=== PATIENT | female | born 1995 ===

== ENCOUNTER 2016-06-16 20:12 | Emergency (ER) | payer OTHER ==
[2016-06-16 20:12] VITALS: BMI 28.3
[2016-06-16 20:26] VITALS: BP 119/73; PULSE 74; RESP 18; TEMP 98.1; O2SAT 100
[2016-06-16] MEDS ORDERED: Iohexol 240 (50 ml) ONE (22:41)
[2016-06-16] MEDS ORDERED: Sodium Chloride 0.9% 1,000 ML IV STA (22:41)
--- NOTE | 2016-06-16 22:50 | ED PDOC ---
HPI: Abdomen Time Seen by Provider: 06/16/16 22:00 Chief Complaint (Nursing): Abdominal Pain Chief Complaint (Provider): Abdominal Pain History Per: Patient History/Exam Limitations: no limitations Onset/Duration Of Symptoms: Days (x5) Associated Symptoms: denies: Fever, Chills, Nausea, Vomiting, Constipation, Urinary Symptoms Additional Complaint(s): 22:00 Michelle Jane is a 21 year old female that presents to the ED with a chief complaint of lower abdominal pain that she has been experiencing for the past five days, and that has been worsening since onset. Patient states that she took an antacid one day, and that it appeared to have help alleviate her symptoms for some time, but her pain has returned and is continuously intensifying. Her pain worsens upon eating, so shes has had decreased PO intake. She denies any fever, chills, nausea, vomiting, vaginal bleeding, vaginal discharge, dysuria, hematuria, or frequency, but remarks that her urine stream "feels weak." She also states that her stool has appeared different, in that it is looser than usual and yellow in color. She has no surgical history, denies tobacco use and sexual activity. PMD: None Of Note: Patient's mother has Lupus and sister has Hasimoto's disease. Abnormal Vaginal Bleeding: No Last Menstral Period: two weeks ago Past Medical History Reviewed: Historical Data, Nursing Documentation, Vital Signs Vital Signs: Last Vital Signs Temp 98.1 F 06/16/16 20:25 Pulse 74 06/16/16 20:25 Resp 18 06/16/16 20:25 BP 119/73 06/16/16 20:25 Pulse Ox 100 06/16/16 20:25 - Medical History PMH: No Chronic Diseases - Surgical History Surgical History: No Surg Hx - Family History Family History: States: Other (Mother has Lupus, sister has Hasimoto's) - Social History Current smoker - smoking cessation education provided: No - Home Medications Home Medications: Ambulatory Orders Medication Instructions Recorded Naproxen [Naprosyn Tab] 500 mg PO BID PRN #20 tab 12/23/13 Nitrofurantoin Macrocrystals 100 mg PO BID #14 cap 12/23/13 [Macrobid] - Allergies Allergies/Adverse Reactions: Allergies Allergy/AdvReac Type Severity Reaction Status Date / Time No Known Allergies Allergy Verified 06/16/16 20:27 Review of Systems Constitutional: Negative for: Fever, Chills Gastrointestinal: Positive for: Abdominal Pain (lower abdominal pain). Negative for: Nausea, Vomiting Genitourinary Female: Positive for: Other (Patient states that urine stream feels weak and that stool appears looser than usual and yellow in color). Negative for: Dysuria, Frequency, Hematuria, Vaginal Discharge, Vaginal Bleeding Physical Exam - Reviewed Nursing Documentation Reviewed: Yes Vital Signs Reviewed: Yes - Physical Exam Appears: Positive for: No Acute Distress (Patient is obese) Head Exam: Positive for: ATRAUMATIC, NORMOCEPHALIC Skin: Positive for: Normal Color, Warm ENT: Positive for: Pharynx Is (clear). Negative for: Normal ENT Inspection ( dry mucous membranes) Cardiovascular/Chest: Positive for: Regular Rate, Rhythm. Negative for: Murmur Respiratory: Positive for: Normal Breath Sounds. Negative for: Respiratory Distress Gastrointestinal/Abdominal: Positive for: Tenderness (suprapubic tenderness to palpation). Negative for: Normal Exam (Abdomen is protuberant), Mass, Guarding , Rebound, Other (negative Bonilla's and McBurney's Point tenderness) Neurologic/Psych: Positive for: Alert, Oriented - ECG O2 Sat by Pulse Oximetry: 100 (RA) Pulse Ox Interpretation: Normal Medical Decision Making Medical Decision Makin:35 Initial Impression: Abdominal Pain vs. Ovarian Cyst vs. Colitis vs. Diverticulitis vs. Enteritis Initial Plan: * CT Scan A/P with IV Contrast * CMP * CBC * Cortisol PM * Lipase * Urine * Urine dipstick * Reevaluation Scribe Attestation: Documented by Danielle Chambers, acting as a scribe for Lavinia Smith MD Provider Scribe Attestation: All medical record entries made by the Scribe were at my direction and personally dictated by me. I have reviewed the chart and agree that the record accurately reflects my personal performance of the history, physical exam, medical decision making, and the department course for this patient. I have also personally directed, reviewed, and agree with the discharge instructions and disposition.
[2016-06-16 23:11] LABS: BASO # 0.1 K/uL (0.0-0.2); BASO % 0.5 % (0.0-2.0); EOS # 0.2 K/uL (0.0-0.7); EOS % 1.4 % (0.0-4.0); HEMATOCRIT 43.5 % (34.0-47.0); LYMPH # 2.9 K/uL (1.0-4.3); LYMPH % 25.4 % (20.0-40.0); MEAN CELL VOLUME 85.5 fl (81.0-99.0); MEAN CORPUSCULAR HEMOGLOBIN 27.6 pg (27.0-31.0); MEAN CORPUSCULAR HGB CONC 32.2 g/dL (33.0-37.0); MEAN PLATELET VOLUME 11.3 fl (7.2-11.7); MONO # 0.7 K/uL (0.0-0.8); MONO % 5.7 % (0.0-10.0); NEUT # 7.7 K/uL (1.8-7.0); NRBC % 0.1 % (0.0-0.0); RED CELL DISTRIBUTION WIDTH 13.9 % (11.5-14.5); WHITE BLOOD COUNT 11.6 K/uL (4.8-10.8)
[2016-06-16 23:17] LABS: ALB/GLOB RATIO 1.2 (1.0-2.1); ALKALINE PHOSPHATASE 86 U/L (38-126); ALT/SGPT 67 U/L (9-52); AST/SGOT 36 U/L (14-36); BILIRUBIN,TOTAL 0.3 mg/dl (0.2-1.3); BLOOD UREA NITROGEN 20 mg/dl (7-17); CALCIUM 9.6 mg/dL (8.4-10.2); CARBON DIOXIDE 24 mmol/L (22-30); CHLORIDE 105 mmol/L (98-107); GFR AFRICAN-AMERICAN > 60; GLUCOSE,RANDOM 91 mg/dL (65-105); LIPASE 79 U/L (23-300); SODIUM 143 mmol/l (132-148)
[2016-06-17] MEDS ORDERED: Sodium Chloride 0.9% 50 ML IV ONE (00:45)
[2016-06-17] MEDS ORDERED: Iohexol 300 100 ML IJ ONE (00:45)
--- NOTE | 2016-06-17 01:18 | CT ---
EXAM: CT Abdomen and Pelvis With Intravenous Contrast. CLINICAL HISTORY: 21 years old, female; Pain; Abdominal pain; Localized; Lower; Additional info: Lower abd pain TECHNIQUE: Axial computed tomography images of the abdomen and pelvis with intravenous contrast. This CT exam was performed using one or more of the following dose reduction techniques: automated exposure control, adjustment of the mA and/or kV according to patient size, and/or use of iterative reconstruction technique. Coronal and sagittal reformatted images were created and reviewed. CONTRAST: 95 mL of [id number] administered intravenously. COMPARISON: No relevant prior studies available. FINDINGS: Fatty infiltration of the liver. The spleen, pancreas and adrenal glands demonstrate no acute abnormalities. The kidneys are symmetric with no evidence of hydronephrosis. The aorta is unremarkable. The small and large bowel as visualized demonstrate no evidence of obstruction or clear focus of inflammation. Oral contrast within small bowel at the time of imaging, limiting evaluation distally. No evidence of appendicitis. Some retained fecal material in the colon. Unremarkable evaluation of pelvic viscera. Slight hazy appearance to the mesentery, nonspecific. No ascites. No free air. IMPRESSION: No definitive acute CT finding to correspond to reported history. Please see details/findings as above.
--- NOTE | 2016-06-17 02:40 | ED PDOC ---
- Laboratory Results Result Diagrams: 06/16/16 23:06 06/16/16 23:06 - ECG O2 Sat by Pulse Oximetry: 100 (RA) Medical Decision Making Medical Decision Making: Pt s/o to provider by Dr Smith CT A/P shows no acute findings Patient is stable for dc home DX AGE RX Bentyl, FU PCP 2 days Disposition - Clinical Impression Clinical Impression: Gastroenteritis - POA Present On Arrival: None - Disposition Referrals: [facility] [Outside] [facility] [Outside] Disposition: Routine/Home Disposition Time: 00:39 Condition: STABLE Prescriptions: Dicyclomine [Bentyl] 20 mg PO Q12 PRN #20 tab PRN Reason: abdominal pain Instructions: Gastroenteritis (ED)
== END 2016-06-17 03:08 | disposition home or self-care (01) ==
LOC: H.ER 20:12
DX: K52.9 Noninfective gastroenteritis and colitis, unspecified (principal); R10.9 Unspecified abdominal pain

== ENCOUNTER 2017-01-11 14:25 | Emergency (ER) | payer OTHER ==
[2017-01-11 14:25] VITALS: BMI 28.3
[2017-01-11 14:40] VITALS: BP 119/56; PULSE 76; RESP 16; TEMP 96; O2SAT 99
[2017-01-11] MEDS ORDERED: Sodium Chloride 0.9% 1,000 ML IV STA (15:41)
--- NOTE | 2017-01-11 16:06 | ED PDOC ---
HPI: Abdomen <Lavinia Smith - Last Filed: 01/11/17 18:10> History Per: Patient <Theodore Hatfield - Last Filed: 01/11/17 18:34> Time Seen by Provider: 01/11/17 15:09 Chief Complaint (Nursing): Abdominal Pain Additional Complaint(s): 21 y/o obese F complaining of lower abdominal pain that began yesterday. Pain is constant today, radiates to upper quadrants, 7/10 intensity and NOT alleviating. Pt has been having intermittent episodes of abdominal pain since a few months ago that resolves spontaneously. Pt reports intermittent constipation and diarrhea for many years. Pt denies fever, headache, CP, SOB, acid reflux, N/V, dysuria, urinary frequency, dyspareunia, vaginal dyscharge or rash. Allergies: NKDA Medications: none. PMHx: denied. PSHx: denied FHx: mother has Lupus and GERD. SHx: Denies tobacco, alcohol, or recreational drugs. Pt currently sexually active with boyfriend. (Theodore Hatfield) Past Medical History <Lavinia Smith - Last Filed: 01/11/17 18:10> - Medical History PMH: No Chronic Diseases <Theodore Hatfield - Last Filed: 01/11/17 18:34> Vital Signs: Last Vital Signs Temp 96 F L 01/11/17 14:36 Pulse 76 01/11/17 14:36 Resp 16 01/11/17 14:36 BP 119/56 L 01/11/17 14:36 Pulse Ox 99 01/11/17 18:23 - Home Medications Home Medications: Ambulatory Orders Medication Instructions Recorded Naproxen [Naprosyn Tab] 500 mg PO BID PRN #20 tab 12/23/13 Nitrofurantoin Macrocrystals 100 mg PO BID #14 cap 12/23/13 [Macrobid] Dicyclomine [Bentyl] 20 mg PO Q12 PRN #20 tab 06/17/16 Naproxen [Naprosyn] 1 tab PO BID PRN #30 tab 01/11/17 - Allergies Allergies/Adverse Reactions: Allergies Allergy/AdvReac Type Severity Reaction Status Date / Time No Known Allergies Allergy Verified 06/16/16 20:27 Physical Exam - Physical Exam Appears: Positive for: Well, No Acute Distress Head Exam: Positive for: ATRAUMATIC Skin: Positive for: Normal Color Eye Exam: Positive for: Normal appearance, EOMI, PERRL ENT: Positive for: Normal ENT Inspection Neck: Positive for: Normal Cardiovascular/Chest: Positive for: Regular Rate, Rhythm Respiratory: Positive for: Normal Breath Sounds Gastrointestinal/Abdominal: Positive for: Bowel Sounds, Soft, Tenderness (( diffusively, more intense in suprapubic area)). Negative for: Mass, Guarding, Rebound <Theodore Hatfield - Last Filed: 01/11/17 18:34> - Laboratory Results Result Diagrams: 01/11/17 16:15 01/11/17 16:15 <Lavinia Smith - Last Filed: 01/11/17 18:10> - Laboratory Results Result Diagrams: 01/11/17 16:15 01/11/17 16:15 - ECG O2 Sat by Pulse Oximetry: 99 <Theodore Hatfield - Last Filed: 01/11/17 18:34> Medical Decision Making <Lavinia Smith - Last Filed: 01/11/17 18:10> <Theodore Hatfield - Last Filed: 01/11/17 18:34> Medical Decision Makin21 y/o obese F presenting with bilateral lower quadrants abdominal pain. Plan: --Urine BHCG qualitative --CBC --CMP --Urinalysis --Pelvic US-transvaginal --Toradol --IV NSS 0.9% (Theodore Hatfield) Disposition <Lavinia Smith - Last Filed: 01/11/17 18:10> - Patient ED Disposition Is Patient to be Admitted: No Discussed With : Lavinia Smith - Disposition Disposition: Routine/Home Disposition Time: 18:25 <Theodore Hatfield Last Filed: 01/11/17 18:34> - Clinical Impression Clinical Impression: Pelvic pain - Disposition Condition: GOOD Prescriptions: Naproxen [Naprosyn] 1 tab PO BID PRN #30 tab PRN Reason: Pain Instructions: Pelvic Pain in Women (ED) Forms: [employer] (Icelandic)
[2017-01-11 16:23] LABS: BASO # 0.1 K/uL (0.0-0.2); BASO % 0.8 % (0.0-2.0); EOS # 0.1 K/uL (0.0-0.7); EOS % 0.8 % (0.0-4.0); HEMATOCRIT 41.7 % (34.0-47.0); LYMPH # 2.2 K/uL (1.0-4.3); LYMPH % 26.7 % (20.0-40.0); MEAN CELL VOLUME 83.8 fl (81.0-99.0); MEAN CORPUSCULAR HEMOGLOBIN 27.1 pg (27.0-31.0); MEAN CORPUSCULAR HGB CONC 32.3 g/dL (33.0-37.0); MEAN PLATELET VOLUME 11.2 fl (7.2-11.7); MONO # 0.5 K/uL (0.0-0.8); MONO % 6.6 % (0.0-10.0); NEUT # 5.4 K/uL (1.8-7.0); NEUT % 65.1 % (50.0-75.0); NRBC % 0.1 % (0.0-0.0); RED CELL DISTRIBUTION WIDTH 14.7 % (11.5-14.5); WHITE BLOOD COUNT 8.3 K/uL (4.8-10.8)
[2017-01-11 16:35] LABS: ALB/GLOB RATIO 1.2 (1.0-2.1); ALKALINE PHOSPHATASE 76 U/L (38-126); ALT/SGPT 57 U/L (9-52); AST/SGOT 30 U/L (14-36); BILIRUBIN,TOTAL 0.5 mg/dl (0.2-1.3); BLOOD UREA NITROGEN 12 mg/dl (7-17); CARBON DIOXIDE 27 mmol/L (22-30); CHLORIDE 104 mmol/L (98-107); GFR AFRICAN-AMERICAN > 60; GLUCOSE,RANDOM 87 mg/dL (65-105); POTASSIUM 4.5 MMOL/L (3.6-5.0); SODIUM 141 mmol/l (132-148); TOTAL PROTEIN 7.7 G/DL (6.3-8.2)
--- NOTE | 2017-01-11 19:09 | US ---
EXAM: US Pelvis, Transvaginal EXAM DATE/TIME: 01/11/2017 3:40 PM CLINICAL HISTORY: 21 years old, female; Pain; Pelvic pain; Additional info: Pelvic pain R/O cyst or torsion TECHNIQUE: Real-time transvaginal pelvic ultrasound (complete) with image documentation. Transvaginal imaging was used for better evaluation of the endometrium and adnexa. COMPARISON: There are no prior studies for comparison. FINDINGS: Uterus: Uterus measures approximately 7.2 x 3 x 4.3 cm. Endometrium measures approximately 8.2 mm in width. Right ovary: Right ovary measures approximately 3.3 x 2.8 x 2.6 cm. There are multiple small follicles. There is intraovarian blood flow. Left ovary: Left ovary measures approximately 3.2 x 2.2 x 2.8 cm. There are multiple small follicles. There is intraovarian blood flow. Free fluid: There is a small amount of free fluid in the cul-de-sac. Bladder: Bladder is not visualized. IMPRESSION: Normal uterus and ovaries, no torsion; small amount of fluid in the cul-de-sac, physiologic versus recent cyst rupture
== END 2017-01-11 18:48 | disposition home or self-care (01) ==
LOC: H.ER 14:25
DX: R10.2 Pelvic and perineal pain (principal)
CPT/HCPCS: 76830; 80053; 81025; 85025; 96374; 99282; J1885; J7040

== ENCOUNTER 2017-11-15 02:37 | Emergency (ER) | payer MEDICAID, OTHER ==
[2017-11-15 02:39] VITALS: BMI 28.3
[2017-11-15] MEDS ORDERED: Sodium Chloride 0.9% 1,000 ML IV STA (03:40)
--- NOTE | 2017-11-15 03:50 | ED PDOC ---
HPI: Hypertension/Hypotension Time Seen by Provider: 11/15/17 03:13 Chief Complaint (Nursing): Abdominal Pain Chief Complaint (Provider): palpitations History Per: Patient History/Exam Limitations: no limitations Onset/Duration Of Symptoms: Days, Waxing/Waning Quality Of Symptoms: Irregular Heart Rate Additional History Per: Patient Additional Complaint(s): 22 y/o female history of developmental delay presents with mother for evaluation of palpitations prior to onset. Patient states she was trying to fall asleep and would randomly feel her her "jolt" and it would wake her up. Patient states she then started to feel her heart racing. Denies fever, headache , dizziness, nausea/vomiting, shortness of breath, abdominal pain, leg pain/ swelling, recent travel. Past Medical History Reviewed: Historical Data, Nursing Documentation, Vital Signs Vital Signs: Last Vital Signs Temp 98.4 F 11/15/17 02:47 Pulse 67 11/15/17 02:47 Resp 17 11/15/17 02:47 BP 103/74 11/15/17 02:47 Pulse Ox 97 11/15/17 02:47 - Medical History PMH: No Chronic Diseases - Surgical History Surgical History: No Surg Hx - Family History Family History: States: Unknown Family Hx - Home Medications Home Medications: Ambulatory Orders Medication Instructions Recorded Naproxen [Naprosyn Tab] 500 mg PO BID PRN #20 tab 12/23/13 Nitrofurantoin Macrocrystals 100 mg PO BID #14 cap 12/23/13 [Macrobid] Dicyclomine [Bentyl] 20 mg PO Q12 PRN #20 tab 06/17/16 Naproxen [Naprosyn] 1 tab PO BID PRN #30 tab 01/11/17 - Allergies Allergies/Adverse Reactions: Allergies Allergy/AdvReac Type Severity Reaction Status Date / Time No Known Allergies Allergy Verified 06/16/16 20:27 Review of Systems ROS Statement: Except As Marked, All Systems Reviewed And Found Negative Cardiovascular: Positive for: Chest Pain, Palpitations Physical Exam - Reviewed Nursing Documentation Reviewed: Yes Vital Signs Reviewed: Yes - Physical Exam Appears: Positive for: Well, Non-toxic, No Acute Distress Head Exam: Positive for: ATRAUMATIC, NORMAL INSPECTION, NORMOCEPHALIC Skin: Positive for: Normal Color Eye Exam: Positive for: Normal appearance ENT: Positive for: Normal ENT Inspection Cardiovascular/Chest: Positive for: Regular Rate, Rhythm Respiratory: Positive for: Normal Breath Sounds Gastrointestinal/Abdominal: Positive for: Bowel Sounds, Soft, Tenderness (mild epigastric discomfort) Back: Positive for: Normal Inspection Extremity: Positive for: Normal ROM Neurologic/Psych: Positive for: Alert, Oriented (x3) - Laboratory Results Result Diagrams: 11/15/17 04:05 11/15/17 04:05 - ECG ECG: Positive for: Viewed By Me (reviewed by ED attending) ECG Rhythm: Positive for: Sinus Rhythm O2 Sat by Pulse Oximetry: 97 - Progress ED Course And Treament: labs, ekg, IV fluids Patient/mother educated on findings, discharged with instructions to follow up PMD 2-3 days Return precautions given Disposition - Clinical Impression Clinical Impression: Atypical chest pain, Palpitations - Patient ED Disposition Is Patient to be Admitted: No Counseled Patient/Family Regarding: Studies Performed, Diagnosis, Need For Followup - Disposition Referrals: [facility] [Outside] Disposition: Routine/Home Disposition Time: 05:25 Condition: IMPROVED Instructions: Chest Pain, Palpitations Forms: [employer] (Chinese)
[2017-11-15 04:14] LABS: BASO % 0.4 % (0.0-2.0); EOS # 0.1 K/uL (0.0-0.7); EOS % 1.6 % (0.0-4.0); HEMOGLOBIN 13.6 g/dL (12.0-16.0); LYMPH # 2.7 K/uL (1.0-4.3); MEAN CORPUSCULAR HEMOGLOBIN 27.9 pg (27.0-31.0); MEAN CORPUSCULAR HGB CONC 33.2 g/dL (33.0-37.0); MEAN PLATELET VOLUME 11.3 fl (7.2-11.7); MONO # 0.7 K/uL (0.0-0.8); MONO % 7.7 % (0.0-10.0); NEUT # 4.9 K/uL (1.8-7.0); NEUT % 58.3 % (50.0-75.0); NRBC % 0.2 % (0.0-0.0); RBC 4.89 Mil/uL (3.80-5.20); RED CELL DISTRIBUTION WIDTH 14.3 % (11.5-14.5); WHITE BLOOD COUNT 8.5 K/uL (4.8-10.8)
[2017-11-15 04:28] LABS: ALB/GLOB RATIO 1.3 (1.0-2.1); ALBUMIN 4.4 g/dL (3.5-5.0); ALT/SGPT 55 U/L (9-52); AST/SGOT 30 U/L (14-36); BLOOD UREA NITROGEN 13 mg/dl (7-17); CALCIUM 9.3 mg/dL (8.4-10.2); GFR NON-AFRICAN AMERICAN > 60; LIPASE 84 U/L (23-300)
[2017-11-15 05:53] VITALS: BP 114/78; PULSE 72; RESP 18; TEMP 98.2; O2SAT 99
== END 2017-11-15 05:40 | disposition home or self-care (01) ==
LOC: H.ER 02:37
DX: R00.2 Palpitations (principal); R07.89 Other chest pain; I10 Essential (primary) hypertension
CPT/HCPCS: 80053; 81025; 83690; 84443; 84484; 85025; 99284; J7030

== ENCOUNTER 2018-03-26 18:08 | Emergency (ER) | payer MEDICAID, OTHER ==
[2018-03-26 18:08] VITALS: BMI 28.3
[2018-03-26 18:38] VITALS: TEMP 99.5
[2018-03-26] MEDS ORDERED: Sodium Chloride 0.9% 1,000 ML IV STA (19:23)
--- NOTE | 2018-03-26 19:37 | ED PDOC ---
HPI:Nausea, Vomiting, Diarrhea Time Seen by Provider: 03/26/18 18:50 Chief Complaint (Nursing): Abdominal Pain Chief Complaint (Provider): GI Problem History Per: Patient History/Exam Limitations: no limitations Onset/Duration Of Symptoms: Days (x1) Current Symptoms Are (Timing): Still Present Context: Food Associated Symptoms: Nausea, Vomiting, Diarrhea Additional Complaint(s): 23 y/o female with a PMHx of Gastritis and Autism presents to the ED for evaluation of nausea, vomiting and diarrhea since 8 AM this morning. Patient reports of eating junk food last night and denies having any new food or drinking alcohol. Patient states she is able to keep down food and liquids, however starts to feel nauseous. Patient reports of taking Pepto Bismol with no relief. Otherwise, patient denies any associated symptoms including fever. PMD: Dr. Ramos Past Medical History Reviewed: Historical Data, Nursing Documentation, Vital Signs Vital Signs: Last Vital Signs Temp 99.5 F 03/26/18 18:34 Pulse 112 H 03/26/18 18:34 Resp 20 03/26/18 18:34 BP 118/75 03/26/18 18:46 Pulse Ox 100 03/26/18 18:34 - Medical History PMH: Gastritis Other PMH: Autism, obestiy - Surgical History Surgical History: No Surg Hx - Family History Family History: States: Unknown Family Hx - Social History Current smoker - smoking cessation education provided: No Alcohol: None Drugs: Denies - Home Medications Home Medications: Ambulatory Orders Medication Instructions Recorded Naproxen [Naprosyn Tab] 500 mg PO BID PRN #20 tab 12/23/13 Nitrofurantoin Macrocrystals 100 mg PO BID #14 cap 12/23/13 [Macrobid] Dicyclomine [Bentyl] 20 mg PO Q12 PRN #20 tab 06/17/16 RX: Naproxen [Naprosyn] 1 tab PO BID PRN #30 tab 01/11/17 Ondansetron [Zofran] 4 mg PO Q6H PRN #5 tab 03/27/18 - Allergies Allergies/Adverse Reactions: Allergies Allergy/AdvReac Type Severity Reaction Status Date / Time No Known Allergies Allergy Verified 06/16/16 20:27 Review of Systems ROS Statement: Except As Marked, All Systems Reviewed And Found Negative Constitutional: Negative for: Fever Gastrointestinal: Positive for: Nausea, Vomiting, Diarrhea Physical Exam - Reviewed Nursing Documentation Reviewed: Yes Vital Signs Reviewed: Yes - Physical Exam Appears: Positive for: No Acute Distress (but obese) Head Exam: Positive for: ATRAUMATIC, NORMOCEPHALIC Skin: Positive for: Normal Color, Warm, Dry Eye Exam: Positive for: Normal appearance, EOMI, PERRL ENT: Positive for: Normal ENT Inspection Neck: Positive for: Normal, Painless ROM, Supple Cardiovascular/Chest: Positive for: Regular Rate, Rhythm. Negative for: Murmur Respiratory: Positive for: Normal Breath Sounds. Negative for: Respiratory Distress Gastrointestinal/Abdominal: Positive for: Normal Exam, Soft. Negative for: Tenderness Back: Positive for: Normal Inspection. Negative for: L CVA Tenderness, R CVA Tenderness, Vertebral Tenderness Extremity: Positive for: Normal ROM. Negative for: Deformity Neurologic/Psych: Positive for: Alert, Oriented. Negative for: Motor/Sensory Deficits - Laboratory Results Result Diagrams: 03/26/18 19:37 03/26/18 19:37 - ECG O2 Sat by Pulse Oximetry: 100 (RA) Pulse Ox Interpretation: Normal Medical Decision Making Medical Decision Making: Time: 1922 Impression: abdominal pain, vomiting rule out gastroeneteritis Plan: -- CMP -- Lipase -- ED Urine Dipstick -- CBC with Differentials -- Sodium Chloride 0.9% IV 999 mls/hr -- Pepcid 20 mg IVP -- Zofran Inj 4 mg IV -- Urine C&S -- Urinalaysis Time: 2199 -- Labs reviewed and show no clinically significant abnormalities. Time: 46 --Patient has tolerated PO challenge. and states she feesl much better. discussed results with patient. she has no fever, no wbc, she looks well. instructed her on good hydration at home, zofran prn nausea and follow up with pcp. if symptoms worsen to return to the ED. Scribe Attestation: Documented by Yamil Hunter, acting as a scribe for Frantz Martínez MD. Provider Scribe Attestation: All medical record entries made by the Scribe were at my direction and personally dictated by me. I have reviewed the chart and agree that the record accurately reflects my personal performance of the history, physical exam, medical decision making, and the department course for this patient. I have also personally directed, reviewed, and agree with the discharge instructions and disposition. Disposition - Clinical Impression Clinical Impression: Enteritis - Patient ED Disposition Is Patient to be Admitted: No Counseled Patient/Family Regarding: Studies Performed, Diagnosis, Need For Followup - Disposition Disposition: Routine/Home Disposition Time: 00:45 Condition: IMPROVED Additional Instructions: FOLLOW UP WITH YOUR PRIMARY DOCTOR IN 1-2 DAYS STAY HYDRATED RETURN TO THE ED WITH ANY WORSENING OR CONCERNING SYMPTOMS Prescriptions: Ondansetron [Zofran] 4 mg PO Q6H PRN #5 tab PRN Reason: Nausea/Vomiting Instructions: Viral Gastroenteritis, Adult (DC) Forms: [employer] (Italian)
[2018-03-26 20:16] LABS: BASO % 0.4 % (0.0-2.0); EOS % 0.3 % (0.0-4.0); HEMOGLOBIN 13.8 g/dL (12.0-16.0); LYMPH # 0.6 K/uL (1.0-4.3); LYMPH % 6.3 % (20.0-40.0); MEAN CELL VOLUME 85.3 fl (81.0-99.0); MEAN CORPUSCULAR HEMOGLOBIN 27.8 pg (27.0-31.0); MEAN CORPUSCULAR HGB CONC 32.6 g/dL (33.0-37.0); MEAN PLATELET VOLUME 11.5 fl (7.2-11.7); MONO # 0.4 K/uL (0.0-0.8); MONO % 4.1 % (0.0-10.0); NEUT # 8.4 K/uL (1.8-7.0); NEUT % 88.9 % (50.0-75.0); PLATELET COUNT 176 K/uL (130-400); RBC 4.96 Mil/uL (3.80-5.20); RED CELL DISTRIBUTION WIDTH 14.7 % (11.5-14.5); WHITE BLOOD COUNT 9.4 K/uL (4.8-10.8)
[2018-03-26 20:29] LABS: SQUAMOUS EPITHIAL 2 /hpf (0-5); URINE BACTERIA RARE (<OCC); URINE BILIRUBIN NEGATIVE (NEGATIVE); URINE BLOOD NEGATIVE (NEGATIVE); URINE CLARITY SLIGHTY-CLOUDY (Clear); URINE COLOR YELLOW (YELLOW); URINE GLUCOSE (UA) NEG (NEGATIVE); URINE LEUKOCYTE ESTERASE NEG Leu/uL (Negative); URINE PROTEIN NEGATIVE (NEGATIVE)
[2018-03-26 20:35] LABS: ALB/GLOB RATIO 1.1 (1.0-2.1); ALBUMIN 4.2 g/dL (3.5-5.0); ALT/SGPT 40 U/L (9-52); AST/SGOT 29 U/L (14-36); BLOOD UREA NITROGEN 16 mg/dl (7-17); CALCIUM 9.1 mg/dL (8.4-10.2); GFR NON-AFRICAN AMERICAN > 60; LIPASE 44 U/L (23-300)
[2018-03-26 20:58] LABS: LYMPHOCYTE 8 % (20-50); MONOCYTE 4 % (0-10); NEUTROPHIL 87 % (42-75); PLATELET ESTIMATE NORMAL (NORMAL); REACTIVE LYMPHOCYTES 1 % (0-0); TOTAL CELLS COUNTED 100
[2018-03-26 20:59] LABS: ANISOCYTOSIS SLIGHT
[2018-03-26] MEDS ORDERED: Sodium Chloride 0.9% 50 ML IV ONE (22:41)
[2018-03-26] MEDS ORDERED: Iohexol 300 100 ML IJ ONE (22:41)
[2018-03-27 01:02] VITALS: BP 115/55; PULSE 77; RESP 16
[2018-03-27 02:32] VITALS: O2SAT 100
--- NOTE | 2018-03-27 13:52 | CT ---
Date of service: 03/26/2018 PROCEDURE: CT Abdomen and Pelvis with contrast HISTORY: diffuse abd pain COMPARISON: 06/17/2016. TECHNIQUE: CT scan of the abdomen and pelvis was performed after administration of intravenous contrast. Oral contrast was not administered. Coronal and sagittal reformatted images were obtained. Contrast dose: 100 mL Omnipaque 300 Radiation dose: Total exam DLP = 923.42 mGy-cm. This CT exam was performed using one or more of the following dose reduction techniques: Automated exposure control, adjustment of the mA and/or kV according to patient size, and/or use of iterative reconstruction technique. FINDINGS: LOWER THORAX: The visualized lungs are clear. LIVER: Mild hepatomegaly and fatty liver. Normal homogeneous enhancement. No gross lesion or ductal dilatation. GALLBLADDER AND BILE DUCTS: Well distended. No calcified gallstones, wall thickening or pericholecystic fluid. PANCREAS: Normal in size with homogeneous enhancement. No gross lesion or ductal dilatation. SPLEEN: Mild splenomegaly. ADRENALS: No discrete nodule. KIDNEYS AND URETERS: Normal in size with homogeneous enhancement. No hydronephrosis. No solid mass. VASCULATURE: No aortic aneurysm. BOWEL: Evaluation of the bowel is limited in the absence of oral contrast. The small bowel loops are normal in caliber. There fluid in the duodenum, mid and distal small bowel loops. There is fluid in the cecum. The colon is grossly normal in appearance. No bowel wall thickening or obstruction. APPENDIX: Normal appendix. PERITONEUM: No free fluid. No free air. LYMPH NODES: No enlarged lymph nodes. BLADDER: Well distended and normal in appearance. REPRODUCTIVE: The uterus is normal in size. BONES: No acute fracture. Within normal limits for the patient's age. OTHER FINDINGS: None. IMPRESSION: Fluid in normal caliber duodenum, mid and distal small bowel loops and cecum could represent diarrhea or nonspecific infectious/inflammatory enteritis. Mild hepatosplenomegaly and fatty liver. A preliminary report was provided by [employer].
== END 2018-03-27 01:02 | disposition home or self-care (01) ==
LOC: H.ER 18:08
DX: B95.2 Enterococcus as the cause of diseases classified elsewhere (principal)
CPT/HCPCS: 74177; 80053; 81003; 81025; 83690; 85025; 87086; 87181; 96361; 96374; 96375; 99284; J2405; J7030; Q9967

== ENCOUNTER 2018-08-23 13:31 | Emergency (ER) | payer OTHER ==
[2018-08-23 13:31] VITALS: BMI 28.3
[2018-08-23 13:41] VITALS: TEMP 98.4
[2018-08-23] MEDS ORDERED: Sodium Chloride 0.9% 1,000 ML IV STA (14:21)
--- NOTE | 2018-08-23 14:23 | ED PDOC ---
HPI: Abdomen Time Seen by Provider: 08/23/18 14:05 Chief Complaint (Nursing): Abdominal Pain Chief Complaint (Provider): Abdominal Pain History Per: Patient History/Exam Limitations: no limitations Onset/Duration Of Symptoms: Days (x1), Intermittent Episodes Current Symptoms Are (Timing): Still Present Additional Complaint(s): 23 year old female with medical history of gastritis, presents to the emergency department with a complaint of intermittent episodes of upper abdominal pain associated with vomiting and mild diarrhea since this morning. She denies fever, chill, or taking any medication for relief. Past Medical History Reviewed: Historical Data, Nursing Documentation, Vital Signs Vital Signs: Last Vital Signs Temp 98.4 F 08/23/18 13:38 Pulse 72 08/23/18 13:38 Resp 17 08/23/18 13:38 BP 126/79 08/23/18 13:38 Pulse Ox 98 08/23/18 13:38 Primary Care Provider: Abhinav Wood - Medical History PMH: Gastritis - Surgical History Surgical History: No Surg Hx - Family History Family History: States: Unknown Family Hx - Home Medications Home Medications: Ambulatory Orders Medication Instructions Recorded Naproxen [Naprosyn Tab] 500 mg PO BID PRN #20 tab 12/23/13 Nitrofurantoin Macrocrystals 100 mg PO BID #14 cap 12/23/13 [Macrobid] Dicyclomine [Bentyl] 20 mg PO Q12 PRN #20 tab 06/17/16 Naproxen [Naprosyn] 1 tab PO BID PRN #30 tab 01/11/17 Ondansetron [Zofran] 4 mg PO Q6H PRN #5 tab 03/27/18 - Allergies Allergies/Adverse Reactions: Allergies Allergy/AdvReac Type Severity Reaction Status Date / Time No Known Allergies Allergy Verified 06/16/16 20:27 Review of Systems ROS Statement: Except As Marked, All Systems Reviewed And Found Negative Constitutional: Negative for: Fever, Chills Gastrointestinal: Positive for: Vomiting (x1), Abdominal Pain (upper), Diarrhea (mild) Physical Exam - Reviewed Nursing Documentation Reviewed: Yes Vital Signs Reviewed: Yes - Physical Exam Appears: Positive for: No Acute Distress Head Exam: Positive for: ATRAUMATIC, NORMAL INSPECTION, NORMOCEPHALIC Skin: Positive for: Normal Color Eye Exam: Positive for: Normal appearance ENT: Positive for: Normal ENT Inspection. Negative for: Pharyngeal Erythema Neck: Positive for: Normal Cardiovascular/Chest: Positive for: Regular Rate, Rhythm Respiratory: Positive for: Normal Breath Sounds. Negative for: Respiratory Distress Pulses-Radial (L): 2+ Pulses-Radial (R): 2+ Gastrointestinal/Abdominal: Positive for: Soft, Tenderness (RLQ; epigastric), Other (obese) Back: Positive for: Normal Inspection. Negative for: L CVA Tenderness, R CVA Tenderness Extremity: Positive for: Normal ROM (upper/lower) Neurological/Psych: Positive for: Awake, Alert, Normal Tone - Laboratory Results Result Diagrams: 08/23/18 14:20 Urine POC: Negative - ECG O2 Sat by Pulse Oximetry: 98 (RA) Pulse Ox Interpretation: Normal Medical Decision Making Medical Decision Making: Initial Impression: abdominal pain Differential diagnosis: appendicitis; gastritis; pancreatitis Initial Plan: * CT ABD/pelvis * Labs * IV fluids * Zofran IV Scribe Attestation: Documented by Ragini Eaton, acting as a scribe for Ramesh Rees MD. Provider Scribe Attestation: All medical record entries made by the Scribe were at my direction and personally dictated by me. I have reviewed the chart and agree that the record accurately reflects my personal performance of the history, physical exam, [facility] decision making, and the department course for this patient. I have also personally directed, reviewed, and agree with the discharge instructions and disposition. Disposition - Disposition Forms: [employer] ([place])
[2018-08-23 14:31] LABS: BASO # 0.1 K/uL (0.0-0.2); BASO % 0.6 % (0.0-2.0); EOS % 0.5 % (0.0-4.0); HEMOGLOBIN 13.7 g/dL (12.0-16.0); LYMPH # 1.3 K/uL (1.0-4.3); LYMPH % 14.4 % (20.0-40.0); MEAN CORPUSCULAR HEMOGLOBIN 28.3 pg (27.0-31.0); MEAN CORPUSCULAR HGB CONC 33.3 g/dL (33.0-37.0); MEAN PLATELET VOLUME 11.3 fl (7.2-11.7); MONO # 0.4 K/uL (0.0-0.8); MONO % 4.2 % (0.0-10.0); NEUT # 7.3 K/uL (1.8-7.0); NEUT % 80.3 % (50.0-75.0); RBC 4.82 Mil/uL (3.80-5.20); RED CELL DISTRIBUTION WIDTH 14.7 % (11.5-14.5); WHITE BLOOD COUNT 9.1 K/uL (4.8-10.8)
--- NOTE | 2018-08-23 15:20 | ED PDOC ---
- Laboratory Results Result Diagrams: 08/23/18 14:20 08/23/18 15:20 Urine POC: Negative - ECG O2 Sat by Pulse Oximetry: 98 (RA) Medical Decision Making Medical Decision Making: Time: 1500 --Patient is endorsed to provider by Dr. Rees, pending CT ABD/pelvis results and reassessment. Time: 1755 --CT ABD/pelvis FINDINGS: LOWER THORAX: The lung bases are clear. No infiltrate effusion or basilar pneumothorax. Heart size within range of normal. No significant pericardial effusion. LIVER: The liver is normal in size measuring approximately 17.6 cm in CC dimension. No obvious hepatic mass collection or calcification. mild to moderate fatty hepatic infiltration. Portal and splenic veins are opacified.. GALLBLADDER AND BILE DUCTS: Physiologically distended. No evidence of intraluminal gallbladder calculi. PANCREAS: Pancreas unremarkable without masses collections calcifications or significant ductal dilatation. SPLEEN: Spleen exhibits normal size and attenuation pattern without mass collection or calcification. ADRENALS: No adrenal lesions KIDNEYS AND URETERS: Kidneys demonstrate symmetric nephrograms. No evidence of nephrolithiasis or hydronephrosis. No evidence of acute appendicitis. BLADDER: Grossly unremarkable. REPRODUCTIVE: Interval development of a large approximately 6.1 x 5.8 cm elliptical shaped cystic lesion in the region of the left adnexa that probably represents adnexal cyst... APPENDIX: No evidence of acute appendicitis BOWEL: Evaluation of the bowel is limited due to the lack of oral contrast material. The stomach is incompletely distended with slight thick-walled appearance. Visualized loops of small bowel exhibit normal contour and caliber. No evidence of acute mechanical small bowel obstruction. There appears to be a moderate amount of liquid stool within the colon; rule out diarrheal illness.. Slight wall thickening of the cecum and proximal ascending colon; the possibility of mild colitis to be considered. PERITONEUM: Unremarkable. No fluid collection. No free air. Small fat containing umbilical hernia. LYMPH NODES: Unremarkable. No enlarged lymph nodes. VASCULATURE: Unremarkable. No aortic aneurysm. No aortic atherosclerotic calcification or mural plaque present. BONES: Minor multilevel degenerative spondylosis of the lower thoracic spine. OTHER FINDINGS: None. IMPRESSION: There is a large left-sided adnexal cyst as above. Mild fatty hepatic infiltration. There is a moderate amount of liquid stool seen throughout the colon; rule out diarrheal illness. Slight wall thickening of the cecum and proximal ascending colon; the possibility of mild colitis to be considered. Time: 1834 --Upon provider reevaluation, patient is medically stable, reports improvement in symptoms, and requires no further treatment in the ED at this time. Findings and plan were discussed with patient who verbalizes understanding. Patient will be discharged home and provided a referral to follow up with [facility] specialist. Counseling was provided and all questions were answered regarding diagnosis. There is agreement to discharge plan. Return precautions discussed. Scribe Attestation: Documented by Ragini Eaton, acting as a scribe for Janet Holcomb MD. Provider Scribe Attestation: All medical record entries made by the Scribe were at my direction and personally dictated by me. I have reviewed the chart and agree that the record accurately reflects my personal performance of the history, physical exam, medical decision making, and the department course for this patient. I have also personally directed, reviewed, and agree with the discharge instructions and disposition. Disposition - Clinical Impression Clinical Impression: Ovarian cyst - POA Present On Arrival: None - [facility]position [facility] Disposition: Routine/Home Disposition Time: 18:35 Condition: STABLE Additional Instructions: Take Motrin or Tylenol for pain. Follow up with [facility] p[facility] within one week. Return to the emergency department if symptoms worsen or if new symptoms develop. Instructions: Ovarian Cyst (DC) Forms: [employer] ([place]ian) Print Language: L[place]
[2018-08-23 16:17] LABS: ALB/GLOB RATIO 1.2 (1.0-2.1); ALBUMIN 4.2 g/dL (3.5-5.0); ALT/SGPT 25 U/L (9-52); AST/SGOT 48 U/L (14-36); CALCIUM 9.2 mg/dL (8.4-10.2); GFR NON-AFRICAN AMERICAN > 60
[2018-08-23 16:18] LABS: BLOOD UREA NITROGEN 16 mg/dl (7-17); LIPASE 79 U/L (23-300)
[2018-08-23] MEDS ORDERED: Iohexol 300 100 ML IJ ONE (17:08)
[2018-08-23] MEDS ORDERED: Sodium Chloride 0.9% 50 ML IV ONE (17:08)
--- NOTE | 2018-08-23 18:00 | CT ---
Date of service: 08/23/2018 PROCEDURE: CT abdomen and pelvis HISTORY: Abdominal pain COMPARISON: Comparison made with prior CT scan of the abdomen and pelvis dated 06/17/2016. TECHNIQUE: Contiguous axial images of the abdomen and pelvis following intravenous injection of approximately 95 cc Omnipaque 300 contrast material. Additional 2D sagittal and coronal reformats generated. Radiation dose: Total exam DLP = 923.42 mGy-cm. This CT exam was performed using one or more of the following dose reduction techniques: Automated exposure control, adjustment of the mA and/or kV according to patient size, and/or use of iterative reconstruction technique. FINDINGS: LOWER THORAX: The lung bases are clear. No infiltrate effusion or basilar pneumothorax. Heart size within range of normal. No significant pericardial effusion. LIVER: The liver is normal in size measuring approximately 17.6 cm in CC dimension. No obvious hepatic mass collection or calcification. mild to moderate fatty hepatic infiltration. Portal and splenic veins are opacified.. GALLBLADDER AND BILE DUCTS: Physiologically distended. No evidence of intraluminal gallbladder calculi. PANCREAS: Pancreas unremarkable without masses collections calcifications or significant ductal dilatation. SPLEEN: Spleen exhibits normal size and attenuation pattern without mass collection or calcification. ADRENALS: No adrenal lesions KIDNEYS AND URETERS: Kidneys demonstrate symmetric nephrograms. No evidence of nephrolithiasis or hydronephrosis. No evidence of acute appendicitis. BLADDER: Grossly unremarkable. REPRODUCTIVE: Interval development of a large approximately 6.1 x 5.8 cm elliptical shaped cystic lesion in the region of the left adnexa that probably represents adnexal cyst... APPENDIX: No evidence of acute appendicitis BOWEL: Evaluation of the bowel is limited due to the lack of oral contrast material. The stomach is incompletely distended with slight thick-walled appearance. Visualized loops of small bowel exhibit normal contour and caliber. No evidence of acute mechanical small bowel obstruction. There appears to be a moderate amount of liquid stool within the colon; rule out diarrheal illness.. Slight wall thickening of the cecum and proximal ascending colon; the possibility of mild colitis to be considered. PERITONEUM: Unremarkable. No fluid collection. No free air. Small fat containing umbilical hernia. LYMPH NODES: Unremarkable. No enlarged lymph nodes. VASCULATURE: Unremarkable. No aortic aneurysm. No aortic atherosclerotic calcification or mural plaque present. BONES: Minor multilevel degenerative spondylosis of the lower thoracic spine. OTHER FINDINGS: None. IMPRESSION: There is a large left-sided adnexal cyst as above. Mild fatty hepatic infiltration. There is a moderate amount of liquid stool seen throughout the colon; rule out diarrheal illness. Slight wall thickening of the cecum and proximal ascending colon; the possibility of mild colitis to be considered.
[2018-08-23 19:00] VITALS: BP 102/61; PULSE 61; RESP 18
[2018-08-27 21:26] VITALS: O2SAT 98
== END 2018-08-23 19:05 | disposition home or self-care (01) ==
LOC: H.ER 13:31
DX: N83.209 Unspecified ovarian cyst, unspecified side (principal)
CPT/HCPCS: 74177; 80053; 81025; 83690; 85025; 96361; 96374; 99284; J2405; J7030; Q9967